=== PATIENT | female | born 1940 | race Caucasian/White ===

== ENCOUNTER 2022-07-26 13:23 | Emergency (ER) | payer MEDICARE ==
[2022-07-26 14:06] VITALS: BP 167/75; PULSE 86
[2022-07-26] MEDS ORDERED: traMADol 50 MG Tab PO ONE (14:10)
== END 2022-07-26 14:24 | disposition home or self-care (01) ==
LOC: KA.ED 13:23
DX: M79.605 Pain in left leg (principal); M79.604 Pain in right leg; M79.672 Pain in left foot; M79.671 Pain in right foot
CPT/HCPCS: 99283; A9270-GY

== ENCOUNTER 2023-07-18 22:40 | Emergency (ER) | payer MEDICARE ==
[2023-07-18 23:53] LABS: BASOPHILS ABSOLUTE AUTO 0.02 10^3/uL (0.00-0.10); BASOPHILS PERCENT AUTO 0.1 % (0.0-1.0); EOSINOPHILS ABSOLUTE AUTO 0.08 10^3/uL (0.10-0.30); EOSINOPHILS PERCENT AUTO 0.4 % (1.0-3.0); HEMATOCRIT 44.4 % (37.0-47.0); HEMOGLOBIN 14.6 g/dL (12.0-16.0); IMMATURE GRAN ABSOLUTE AUTO 0.11 10^3/uL (0.00-0.50); IMMATURE GRAN PERCENT AUTO 0.6 % (0.0-5.0); LYMPHOCYTES PERCENT AUTO 8.9 % (20.0-40.0); MEAN CORPUSCULAR HEMOGLOBIN 29.7 pg (27.0-31.0); MEAN CORPUSCULAR HGB CONC 32.9 g/dL (32.0-36.0); MEAN CORPUSCULAR VOLUME 90.4 fL (82.0-92.0); MEAN PLATELET VOLUME 9.1 fL (7.4-10.4); MONOCYTES ABSOLUTE AUTO 0.59 10^3/uL (0.10-0.80); MONOCYTES PERCENT AUTO 3.3 % (2.0-8.0); NEUTROPHILS ABSOLUTE AUTO 15.61 10^3/uL (2.50-7.00); NEUTROPHILS PERCENT AUTO 86.7 % (50.0-70.0); PLATELET COUNT,PLT 239 10^3/uL (150-400); RED BLOOD CELL COUNT 4.91 10^6/uL (3.80-5.50); RED CELL DISTRIBUTION WIDTH 13.3 % (11.5-14.5); WHITE BLOOD CELL COUNT,WBC 18.01 10^3/uL (5.00-10.00)
[2023-07-19 00:04] LABS: ANION GAP 15.7 mmol/L (5-15); CALCIUM 9.2 mg/dL (8.7-10.3); CARBON DIOXIDE,CO2 29.2 mmol/L (21.0-32.0); CREATININE 0.52 mg/dL (0.51-1.17); EST CRCL DRUG DOSING (CG) 63.69 mL/min; POTASSIUM,K 3.9 mmol/L (3.5-5.1)
[2023-07-19 00:06] LABS: INR 2.8 (0.9-1.1); PROTHROMBIN TIME 28.2 SEC (9.3-12.2)
[2023-07-19 00:10] LABS: BILIRUBIN,URINE NEGATIVE (NEGATIVE); COLOR,URINE LIGHT YELLOW (YELLOW); GLUCOSE,URINE NEGATIVE (NEGATIVE); KETONES,URINE TRACE mg/dL (NEGATIVE); LEUKOCYTE ESTERASE,URINE MODERATE (NEGATIVE); NITRITE,URINE NEGATIVE (NEGATIVE); OCCULT BLOOD,URINE MODERATE (NEGATIVE); PROTEIN,URINE >=300 mg/dL (NEGATIVE); UROBILINOGEN,URINE 0.2 E.U./dL (0.2-1.0)
[2023-07-19 00:16] LABS: APPEARANCE,URINE TURBID (CLEAR)
[2023-07-19] MEDS: traMADol 50 MG Tab PO ONE (00:20)
[2023-07-19] MEDS: Acetaminophen 500 MG Tab PO ONE (00:20)
[2023-07-19 00:23] LABS: WBC,URINE 50-75 /HPF (0-5)
[2023-07-19 00:24] LABS: BACTERIA,URINE FEW /HPF (NONE TO FEW); EPITHELIAL CELLS,URINE RARE /LPF
[2023-07-19] MEDS: Cephalexin 250 MG Cap PO ONE ×2 (00:49→01:44)
[2023-07-19] MEDS: Melatonin 3 MG Tab PO SCH (01:08)
[2023-07-19] MEDS: Cephalexin 250 MG Cap PO SCH ×2 (01:45→08:28)
[2023-07-19] MEDS: Pregabalin 25 MG Cap PO SCH (02:11)
[2023-07-19] MEDS: Acetaminophen 500 MG Tab PO PRN (05:02)
[2023-07-19] MEDS: Levothyroxine 25 MCG Tab PO SCH (07:43)
[2023-07-19 07:46] VITALS: BP 130/75; PULSE 77
[2023-07-19] MEDS: traMADol 50 MG Tab PO PRN (08:30)
== END 2023-07-19 09:10 | disposition home or self-care (01) ==
LOC: KA.ED 22:40
DX: S70.11XA Contusion of right thigh, initial encounter (principal); N39.0 Urinary tract infection, site not specified; Z79.01 Long term (current) use of anticoagulants; Z79.899 Other long term (current) drug therapy; W01.198A Fall on same level from slipping, tripping and stumbling with subsequent striking against other object, initial encounter; Y93.01 Activity, walking, marching and hiking
CPT/HCPCS: 36415; 72170; 80048; 81001; 85025; 85610; 87086; 87088; 99284; A9270-GY

== ENCOUNTER 2023-07-21 07:07 | Emergency (ER) | payer MEDICARE ==
[2023-07-21] MEDS ORDERED: Naloxone 0.4 MG/ML SDV IVPUSH PRN (07:36)
[2023-07-21] MEDS: HYDROmorphone 1 MG/ML Syringe IM ONE (07:48)
[2023-07-21 09:14] VITALS: PULSE 79
[2023-07-21 09:59] LABS: INR 1.8 (0.9-1.1)
[2023-07-21] MEDS: ALPRAZolam 0.25 MG Tab PO ONE (12:09)
[2023-07-21] MEDS: Cephalexin 250 MG Cap PO ONE (12:10)
[2023-07-21 12:52] VITALS: BP 131/62
== END 2023-07-21 13:00 | disposition swing bed (61) ==
LOC: KA.ED 07:07
DX: M54.50 Low back pain, unspecified (principal); M85.89 Other specified disorders of bone density and structure, multiple sites; N30.00 Acute cystitis without hematuria; I10 Essential (primary) hypertension; E78.00 Pure hypercholesterolemia, unspecified; Z79.01 Long term (current) use of anticoagulants; Z79.899 Other long term (current) drug therapy; Z90.49 Acquired absence of other specified parts of digestive tract; Z90.710 Acquired absence of both cervix and uterus; W19.XXXA Unspecified fall, initial encounter; Y92.009 Unspecified place in unspecified non-institutional (private) residence as the place of occurrence of the external cause
CPT/HCPCS: 36416; 72070; 72100; 85610; 96372; 99284; A9270-GY; J1170

== ENCOUNTER 2023-07-21 12:42 | Inpatient (IN) | payer MEDICARE ==
[2023-07-21 13:45] VITALS: BP 141/74; PULSE 83
[2023-07-21] MEDS: Ketorolac 30 MG/ML SDV IVPUSH ONE (14:13)
== END 2023-07-21 14:09 | disposition critical access hospital (66) | DRG 690 ==
LOC: KA.MS 12:42
PROVIDERS: ADMIT Internal Medicine; ATTEND Internal Medicine
DX: N39.0 Urinary tract infection, site not specified (principal); I48.0 Paroxysmal atrial fibrillation; I10 Essential (primary) hypertension; R29.6 Repeated falls; E78.00 Pure hypercholesterolemia, unspecified; M19.90 Unspecified osteoarthritis, unspecified site; M54.9 Dorsalgia, unspecified; G89.29 Other chronic pain; M81.0 Age-related osteoporosis without current pathological fracture; F41.9 Anxiety disorder, unspecified; F32.A Depression, unspecified; G47.00 Insomnia, unspecified; E03.9 Hypothyroidism, unspecified; Z96.649 Presence of unspecified artificial hip joint; R53.81 Other malaise; Z79.899 Other long term (current) drug therapy; Z79.01 Long term (current) use of anticoagulants; Z87.81 Personal history of (healed) traumatic fracture; Z85.3 Personal history of malignant neoplasm of breast; Z90.49 Acquired absence of other specified parts of digestive tract; Z90.710 Acquired absence of both cervix and uterus
CPT/HCPCS: J1885

== ENCOUNTER 2023-07-21 14:10 | Inpatient (IN) | payer MEDICARE ==
[2023-07-21] MEDS ORDERED: Polyethylene Glycol 3350 Powder 17 GM Packet PO PRN (15:39)
[2023-07-21] MEDS ORDERED: Morphine 2 MG/ML SYRINGE IVPUSH PRN (15:39)
[2023-07-21] MEDS ORDERED: Ondansetron 4 MG/2 ML SDV IV PRN (15:39)
[2023-07-21] MEDS: Acetaminophen/oxyCODONE 325-5 MG Tab PO PRN (16:02)
[2023-07-21] MEDS: Sodium Chloride 0.9% 1,000 ML IV SCH (16:02)
[2023-07-21] MEDS: Piperacillin/Tazobactam 4.5 GM in Sodium Chloride 0.9% 100 ML IV SCH ×2 (16:39→20:58)
[2023-07-21] MEDS: Piperacillin/Tazobactam 4.5 GM in Sodium Chloride 0.9% 100 ML IV ONE (16:51)
[2023-07-21] MEDS: Carvedilol 12.5 MG Tab PO SCH (18:19)
[2023-07-21] MEDS: Warfarin 2.5 MG Tab PO ONE (18:19)
[2023-07-21] MEDS: ALPRAZolam 0.25 MG Tab PO PRN (19:00)
[2023-07-21] MEDS: Pregabalin 25 MG Cap PO SCH (20:58)
[2023-07-21] MEDS: rOPINIRole 0.25 MG Tab PO SCH (20:58)
[2023-07-21] MEDS: Famotidine 20 MG Tab PO SCH (20:58)
[2023-07-21] MEDS: traMADol 50 MG Tab PO SCH (20:59)
[2023-07-21] MEDS ORDERED: Diclofenac Sodium 1% Gel 100 GM Tube TOP SCH (21:00)
[2023-07-21] MEDS: Acetaminophen 500 MG Tab PO SCH (21:01)
[2023-07-22] MEDS: Levothyroxine 25 MCG Tab PO SCH (06:33)
[2023-07-22 07:24] LABS: HEMATOCRIT 39.6 % (37.0-47.0); HEMOGLOBIN 13.7 g/dL (12.0-16.0); MEAN CORPUSCULAR HEMOGLOBIN 29.4 pg (27.0-31.0); MEAN CORPUSCULAR HGB CONC 34.6 g/dL (32.0-36.0); MEAN PLATELET VOLUME 8.8 fL (7.4-10.4); PLATELET COUNT,PLT 191 10^3/uL (150-400); RED BLOOD CELL COUNT 4.66 10^6/uL (3.80-5.50); RED CELL DISTRIBUTION WIDTH 12.8 % (11.5-14.5)
[2023-07-22 07:32] LABS: ALBUMIN 2.87 g/dL (3.40-5.00); ANION GAP 15.2 mmol/L (5-15); BILIRUBIN TOTAL 0.8 mg/dL (0.2-1.0); CALCIUM 8.2 mg/dL (8.7-10.3); CARBON DIOXIDE,CO2 26.3 mmol/L (21.0-32.0); CREATININE 0.45 mg/dL (0.51-1.17); EST CRCL DRUG DOSING (CG) 73.6 mL/min; POTASSIUM,K 3.5 mmol/L (3.5-5.1); PROTEIN TOTAL,TP 6.6 g/dL (6.4-8.2)
[2023-07-22] MEDS ORDERED: Non-Formulary Medication 1 Each (Duloxetine [Cymbalta] 60 MG Cap) PO SCH (09:00)
[2023-07-22] MEDS: amLODIPine 5 MG Tab PO SCH (09:01)
[2023-07-22] MEDS: DULoxetine 30 MG Cap PO SCH (09:01)
[2023-07-22] MEDS: Amiodarone 200 MG Tab PO SCH (09:02)
[2023-07-22] MEDS: Simvastatin 20 MG Tab PO SCH (09:02)
[2023-07-22] MEDS: Losartan 50 MG Tab PO SCH (09:02)
[2023-07-22] MEDS: Potassium Chloride 20 MEQ Tab.ER PO SCH (09:02)
[2023-07-22] MEDS: Lidocaine 5% 700 MG Patch TOP SCH (09:03)
[2023-07-22] MEDS: Sodium Chloride 0.9% 1,000 ML IV SCH (12:01)
[2023-07-22 15:40] LABS: CALCIUM 8.1 mg/dL (8.7-10.3); CARBON DIOXIDE,CO2 28.4 mmol/L (21.0-32.0); CREATININE 0.52 mg/dL (0.51-1.17); EST CRCL DRUG DOSING (CG) 63.69 mL/min; POTASSIUM,K 3.4 mmol/L (3.5-5.1)
[2023-07-22] MEDS: Digoxin 125 MCG Tab PO SCH (17:59)
[2023-07-22] MEDS: Warfarin 2.5 MG Tab PO ONE (17:59)
[2023-07-22 19:00] LABS: ANION GAP 14.2 mmol/L (5-15); CREATININE 0.45 mg/dL (0.51-1.17); EST CRCL DRUG DOSING (CG) 73.6 mL/min; POTASSIUM,K 3.2 mmol/L (3.5-5.1)
[2023-07-22] MEDS: cefTRIAXone 1 GM Vial IVPUSH SCH (19:09)
[2023-07-22] MEDS: traMADol 50 MG Tab PO SCH (20:21)
[2023-07-22] MEDS: Melatonin 3 MG Tab PO PRN (22:38)
[2023-07-23 08:47] LABS: HEMATOCRIT 36.8 % (37.0-47.0); HEMOGLOBIN 12.7 g/dL (12.0-16.0); MEAN CORPUSCULAR HGB CONC 34.5 g/dL (32.0-36.0); MEAN PLATELET VOLUME 8.7 fL (7.4-10.4); PLATELET COUNT,PLT 218 10^3/uL (150-400); RED BLOOD CELL COUNT 4.23 10^6/uL (3.80-5.50); RED CELL DISTRIBUTION WIDTH 13.1 % (11.5-14.5); WHITE BLOOD CELL COUNT,WBC 9.07 10^3/uL (5.00-10.00)
[2023-07-23 09:06] LABS: INR 2.8 (0.9-1.1); PROTHROMBIN TIME 28.5 SEC (9.3-12.2)
[2023-07-23 09:11] LABS: ALBUMIN 2.86 g/dL (3.40-5.00); ANION GAP 14.9 mmol/L (5-15); BILIRUBIN TOTAL 0.4 mg/dL (0.2-1.0); CALCIUM 8.2 mg/dL (8.7-10.3); CARBON DIOXIDE,CO2 26.3 mmol/L (21.0-32.0); CREATININE 0.48 mg/dL (0.51-1.17); POTASSIUM,K 3.2 mmol/L (3.5-5.1); PROTEIN TOTAL,TP 6.4 g/dL (6.4-8.2)
[2023-07-23 14:08] LABS: ANION GAP 11.7 mmol/L (5-15); CARBON DIOXIDE,CO2 27.7 mmol/L (21.0-32.0); CREATININE 0.5 mg/dL (0.51-1.17); EST CRCL DRUG DOSING (CG) 66.24 mL/min; MAGNESIUM 1.7 mg/dL (1.8-2.4); POTASSIUM,K 3.4 mmol/L (3.5-5.1)
[2023-07-23] MEDS: Sennosides/Docusate Sodium 50-8.6 MG Tab PO PRN (14:23)
[2023-07-23] MEDS: Ampicillin/Sulbactam Na 3 GM in Sodium Chloride 0.9% 100 ML IV SCH (16:21)
[2023-07-23] MEDS ORDERED: Ampicillin 1 GM in Sodium Chloride 0.9% 50 ML IV SCH (17:00)
[2023-07-24 07:00] LABS: INR 2.8 (0.9-1.1)
[2023-07-24 08:25] LABS: ANION GAP 13.3 mmol/L (5-15); CALCIUM 8.4 mg/dL (8.7-10.3); CREATININE 0.48 mg/dL (0.51-1.17); MAGNESIUM 1.7 mg/dL (1.8-2.4); POTASSIUM,K 3.3 mmol/L (3.5-5.1)
[2023-07-24] MEDS: Polyethylene Glycol 3350 Powder 17 GM Packet PO SCH (10:50)
[2023-07-24] MEDS: Docusate Sodium 100 MG Cap PO SCH (10:50)
[2023-07-24] MEDS: Potassium Chloride 10 MEQ Tab.ER PO ONE (13:11)
[2023-07-24] MEDS: Magnesium Oxide 500 MG Tab PO SCH (13:11)
[2023-07-25 07:17] LABS: INR 2.6 (0.9-1.1)
[2023-07-25 08:01] LABS: ANION GAP 13.5 mmol/L (5-15); CALCIUM 8.6 mg/dL (8.7-10.3); CARBON DIOXIDE,CO2 28.4 mmol/L (21.0-32.0); CREATININE 0.52 mg/dL (0.51-1.17); EST CRCL DRUG DOSING (CG) 63.69 mL/min; POTASSIUM,K 3.9 mmol/L (3.5-5.1)
[2023-07-25] MEDS ORDERED: hydrALAZINE 10 MG Tab PO PRN (10:55)
[2023-07-25] MEDS: Ketorolac 30 MG/ML SDV IVPUSH ONE (11:55)
[2023-07-25] MEDS: Sodium Chloride 0.9% 100 ML IV SCH (22:02)
[2023-07-26 08:26] LABS: INR 2.5 (0.9-1.1)
[2023-07-26] MEDS: Sodium Chloride 0.9% 10 ML Syringe FLUSH PRN (22:00)
[2023-07-27 07:32] LABS: INR 2.1 (0.9-1.1)
[2023-07-27 12:36] VITALS: BP 144/62; PULSE 69
[2023-07-27] MEDS ORDERED: Warfarin 2 MG Tab PO ONE (18:00)
== END 2023-07-27 12:33 | DRG 690 ==
LOC: KA.MS 14:10
PROVIDERS: ADMIT Internal Medicine; ATTEND Internal Medicine
DX: N39.0 Urinary tract infection, site not specified (principal); E87.1 Hypo-osmolality and hyponatremia; Z66 Do not resuscitate; I48.0 Paroxysmal atrial fibrillation; S22.080D Wedge compression fracture of T11-T12 vertebra, subsequent encounter for fracture with routine healing; I10 Essential (primary) hypertension; R35.0 Frequency of micturition; E78.00 Pure hypercholesterolemia, unspecified; H54.7 Unspecified visual loss; M19.90 Unspecified osteoarthritis, unspecified site; G89.29 Other chronic pain; G47.00 Insomnia, unspecified; F41.9 Anxiety disorder, unspecified; F32.A Depression, unspecified; E03.9 Hypothyroidism, unspecified; Z96.649 Presence of unspecified artificial hip joint; M54.40 Lumbago with sciatica, unspecified side; R31.9 Hematuria, unspecified; K59.00 Constipation, unspecified; B96.20 Unspecified Escherichia coli [E. coli] as the cause of diseases classified elsewhere; Z79.899 Other long term (current) drug therapy; Z91.81 History of falling; Z79.01 Long term (current) use of anticoagulants; Z87.81 Personal history of (healed) traumatic fracture; Z85.3 Personal history of malignant neoplasm of breast; Z90.49 Acquired absence of other specified parts of digestive tract; Z90.710 Acquired absence of both cervix and uterus; W19.XXXD Unspecified fall, subsequent encounter
CPT/HCPCS: 36415; 36416; 80048; 80053; 83735; 85027; 85610; 99223-GT; 99232-GT; 99233-GT; 99239-GT; A9270-GY; J0295; J0696; J1885; J2543; J3490; J7030; Q3014

== ENCOUNTER 2023-09-13 15:50 | Emergency (ER) | payer MEDICARE ==
[2023-09-13 16:28] LABS: BASOPHILS ABSOLUTE AUTO 0.03 10^3/uL (0.00-0.10); BASOPHILS PERCENT AUTO 0.3 % (0.0-1.0); EOSINOPHILS PERCENT AUTO 3.2 % (1.0-3.0); HEMATOCRIT 42.9 % (37.0-47.0); HEMOGLOBIN 13.8 g/dL (12.0-16.0); IMMATURE GRAN ABSOLUTE AUTO 0.04 10^3/uL (0.00-0.50); IMMATURE GRAN PERCENT AUTO 0.4 % (0.0-5.0); LYMPHOCYTES ABSOLUTE AUTO 2.47 10^3/uL (1.00-4.00); LYMPHOCYTES PERCENT AUTO 26.4 % (20.0-40.0); MEAN CORPUSCULAR HEMOGLOBIN 29.4 pg (27.0-31.0); MEAN CORPUSCULAR HGB CONC 32.2 g/dL (32.0-36.0); MEAN CORPUSCULAR VOLUME 91.3 fL (82.0-92.0); MEAN PLATELET VOLUME 9.7 fL (7.4-10.4); MONOCYTES ABSOLUTE AUTO 0.77 10^3/uL (0.10-0.80); MONOCYTES PERCENT AUTO 8.2 % (2.0-8.0); NEUTROPHILS ABSOLUTE AUTO 5.74 10^3/uL (2.50-7.00); NEUTROPHILS PERCENT AUTO 61.5 % (50.0-70.0); PLATELET COUNT,PLT 222 10^3/uL (150-400); RED CELL DISTRIBUTION WIDTH 13.7 % (11.5-14.5); WHITE BLOOD CELL COUNT,WBC 9.35 10^3/uL (5.00-10.00)
[2023-09-13 17:28] VITALS: BP 150/67; PULSE 71
== END 2023-09-13 17:25 ==
LOC: KA.ED 15:50
DX: S09.90XA Unspecified injury of head, initial encounter (principal); I48.91 Unspecified atrial fibrillation; E78.00 Pure hypercholesterolemia, unspecified; I10 Essential (primary) hypertension; E03.9 Hypothyroidism, unspecified; Z79.899 Other long term (current) drug therapy; Z79.01 Long term (current) use of anticoagulants; Z90.49 Acquired absence of other specified parts of digestive tract; W19.XXXA Unspecified fall, initial encounter
CPT/HCPCS: 36415; 70450; 85025; 85610; 99284

== ENCOUNTER 2024-09-09 11:17 | Emergency (ER) | payer MEDICARE ==
[2024-09-09 11:49] LABS: BASOPHILS ABSOLUTE AUTO 0.02 10^3/uL (0.00-0.10); BASOPHILS PERCENT AUTO 0.4 % (0.0-1.0); EOSINOPHILS PERCENT AUTO 3.5 % (1.0-3.0); HEMATOCRIT 43.4 % (37.0-47.0); HEMOGLOBIN 13.4 g/dL (12.0-16.0); IMMATURE GRAN ABSOLUTE AUTO 0.01 10^3/uL (0.00-0.04); IMMATURE GRAN PERCENT AUTO 0.2 % (0.0-0.4); LYMPHOCYTES ABSOLUTE AUTO 1.86 10^3/uL (1.00-4.00); MEAN CORPUSCULAR HEMOGLOBIN 28.8 pg (27.0-31.0); MEAN CORPUSCULAR HGB CONC 30.9 g/dL (32.0-36.0); MEAN CORPUSCULAR VOLUME 93.1 fL (82.0-92.0); MEAN PLATELET VOLUME 10.5 fL (7.4-10.4); MONOCYTES ABSOLUTE AUTO 0.59 10^3/uL (0.10-0.80); MONOCYTES PERCENT AUTO 10.5 % (2.0-8.0); NEUTROPHILS ABSOLUTE AUTO 2.96 10^3/uL (2.50-7.00); NEUTROPHILS PERCENT AUTO 52.4 % (50.0-70.0); PLATELET COUNT,PLT 157 10^3/uL (150-400); RED BLOOD CELL COUNT 4.66 10^6/uL (3.80-5.50); WHITE BLOOD CELL COUNT,WBC 5.64 10^3/uL (5.00-10.00)
[2024-09-09 12:04] LABS: B-TYPE NATRIURETIC PEPTIDE,BNP 72 pg/mL (0-100)
[2024-09-09 12:08] LABS: ALANINE AMINOTRANSFERASE,ALT 17 U/L (14-63); ALBUMIN 2.76 g/dL (3.40-5.00); ALKALINE PHOSPHATASE 46 U/L (46-116); ANION GAP 4.8 mmol/L (5-15); ASPARTATE AMNIOTRANSFERASE,AST 19 U/L (15-37); BILIRUBIN TOTAL 0.3 mg/dL (0.2-1.0); BLOOD UREA NITROGEN,BUN 32 mg/dL (7-18); CALCIUM 8.8 mg/dL (8.7-10.3); CARBON DIOXIDE,CO2 37.4 mmol/L (21.0-32.0); CHLORIDE,CL 106 mmol/L (98-107); CREATININE 0.84 mg/dL (0.51-1.17); GLUCOSE RANDOM 109 mg/dL (70-140); POTASSIUM,K 4.2 mmol/L (3.5-5.1); PROTEIN TOTAL,TP 6.4 g/dL (6.4-8.2); SODIUM,NA 144 mmol/L (136-145)
[2024-09-09 12:11] LABS: C-REACTIVE PROTEIN < 0.50 mg/dL (0.00-0.50); ESTIMATED GFR 68 mL/min (>=60)
[2024-09-09 12:24] LABS: INR 4.2 (0.9-1.1)
[2024-09-09 12:33] LABS: D-DIMER QUANTITATIVE < 100 ng/mL (<400)
[2024-09-09 17:26] VITALS: BP 151/65
[2024-09-09 17:30] VITALS: PULSE 64
== END 2024-09-09 13:50 ==
LOC: KA.ED 11:17
DX: R79.1 Abnormal coagulation profile (principal); R79.89 Other specified abnormal findings of blood chemistry; I10 Essential (primary) hypertension; E78.00 Pure hypercholesterolemia, unspecified; E03.9 Hypothyroidism, unspecified; Z79.01 Long term (current) use of anticoagulants; Z79.890 Hormone replacement therapy; Z79.899 Other long term (current) drug therapy; Z90.49 Acquired absence of other specified parts of digestive tract; Z90.710 Acquired absence of both cervix and uterus
CPT/HCPCS: 80053; 83880; 84484; 85025; 85379; 85610; 86140; 93005; 99285

== ENCOUNTER 2024-12-18 16:06 | Observation (INO) | payer MEDICARE ==
[2024-12-18] MEDS ORDERED: Sodium Chloride 0.9% 10 ML Syringe FLUSH PRN (16:14)
[2024-12-18 17:17] LABS: BASOPHILS ABSOLUTE AUTO 0.04 10^3/uL (0.00-0.10); BASOPHILS PERCENT AUTO 0.5 % (0.0-1.0); EOSINOPHILS ABSOLUTE AUTO 0.24 10^3/uL (0.10-0.30); EOSINOPHILS PERCENT AUTO 3.2 % (1.0-3.0); IMMATURE GRAN ABSOLUTE AUTO 0.01 10^3/uL (0.00-0.04); IMMATURE GRAN PERCENT AUTO 0.1 % (0.0-0.4); LYMPHOCYTES ABSOLUTE AUTO 1.91 10^3/uL (1.00-4.00); LYMPHOCYTES PERCENT AUTO 25.8 % (20.0-40.0); MEAN PLATELET VOLUME 11.2 fL (7.4-10.4); MONOCYTES ABSOLUTE AUTO 0.74 10^3/uL (0.10-0.80); MONOCYTES PERCENT AUTO 10.0 % (2.0-8.0); NEUTROPHILS ABSOLUTE AUTO 4.45 10^3/uL (2.50-7.00); NEUTROPHILS PERCENT AUTO 60.4 % (50.0-70.0); PLATELET COUNT,PLT 162 10^3/uL (150-400); RED BLOOD CELL COUNT 4.20 10^6/uL (3.80-5.50); RED CELL DISTRIBUTION WIDTH 15.1 % (11.5-14.5); WHITE BLOOD CELL COUNT,WBC 7.39 10^3/uL (5.00-10.00)
[2024-12-18 17:33] LABS: APPEARANCE,URINE CLOUDY (CLEAR); GLUCOSE,URINE NEGATIVE (NEGATIVE); OCCULT BLOOD,URINE LARGE (NEGATIVE)
[2024-12-18 17:34] LABS: ALANINE AMINOTRANSFERASE,ALT 16.0 U/L (14-63); ASPARTATE AMNIOTRANSFERASE,AST 14.0 U/L (15-37); BILIRUBIN TOTAL 0.3 mg/dL (0.2-1.0); BLOOD UREA NITROGEN,BUN 35.0 mg/dL (7-18); CARBON DIOXIDE,CO2 39.0 mmol/L (21.0-32.0); CHLORIDE,CL 102.0 mmol/L (98-107); CREATINE KINASE,CK 19.0 U/L (26-276); CREATININE 0.92 mg/dL (0.51-1.17); EST CRCL DRUG DOSING (CG) 35.36 mL/min; GLUCOSE RANDOM 110.0 mg/dL (70-140); INR 3.9 (0.9-1.1); POTASSIUM,K 4.2 mmol/L (3.5-5.1); PROTEIN TOTAL,TP 6.8 g/dL (6.4-8.2); SODIUM,NA 143.0 mmol/L (136-145)
[2024-12-18 17:35] LABS: ESTIMATED GFR 61.0 mL/min (>=60)
[2024-12-18 17:36] LABS: B-TYPE NATRIURETIC PEPTIDE,BNP 78.0 pg/mL (0-100)
[2024-12-18 17:39] LABS: EPITHELIAL CELLS,URINE RARE /LPF
[2024-12-18] MEDS ORDERED: Magnesium Hydroxide 400 MG/5 ML Susp 30 ML Cup PO PRN (23:08)
[2024-12-19 07:29] LABS: BASOPHILS ABSOLUTE AUTO 0.02 10^3/uL (0.00-0.10); BASOPHILS PERCENT AUTO 0.3 % (0.0-1.0); EOSINOPHILS ABSOLUTE AUTO 0.09 10^3/uL (0.10-0.30); EOSINOPHILS PERCENT AUTO 1.3 % (1.0-3.0); IMMATURE GRAN ABSOLUTE AUTO 0.01 10^3/uL (0.00-0.04); IMMATURE GRAN PERCENT AUTO 0.1 % (0.0-0.4); LYMPHOCYTES ABSOLUTE AUTO 1.38 10^3/uL (1.00-4.00); LYMPHOCYTES PERCENT AUTO 19.9 % (20.0-40.0); MEAN PLATELET VOLUME 10.8 fL (7.4-10.4); MONOCYTES ABSOLUTE AUTO 0.70 10^3/uL (0.10-0.80); MONOCYTES PERCENT AUTO 10.1 % (2.0-8.0); NEUTROPHILS ABSOLUTE AUTO 4.74 10^3/uL (2.50-7.00); NEUTROPHILS PERCENT AUTO 68.3 % (50.0-70.0); PLATELET COUNT,PLT 161 10^3/uL (150-400); RED BLOOD CELL COUNT 4.17 10^6/uL (3.80-5.50); RED CELL DISTRIBUTION WIDTH 14.6 % (11.5-14.5); WHITE BLOOD CELL COUNT,WBC 6.94 10^3/uL (5.00-10.00)
[2024-12-19 07:53] LABS: BLOOD UREA NITROGEN,BUN 29.0 mg/dL (7-18); CARBON DIOXIDE,CO2 41.1 mmol/L (21.0-32.0); CHLORIDE,CL 101.0 mmol/L (98-107); CREATININE 0.74 mg/dL (0.51-1.17); EST CRCL DRUG DOSING (CG) 43.96 mL/min; GLUCOSE RANDOM 112.0 mg/dL (70-140); POTASSIUM,K 3.6 mmol/L (3.5-5.1); SODIUM,NA 143.0 mmol/L (136-145)
[2024-12-19 07:59] LABS: ESTIMATED GFR 79.0 mL/min (>=60)
[2024-12-19 08:03] LABS: INR 4.5 (0.9-1.1)
[2024-12-19] MEDS ORDERED: [UNRECOGNIZED DRUG - OTHER] EYEBOTH SCH (09:00)
[2024-12-19] MEDS: Potassium Chloride 20 MEQ Tab.ER PO SCH (09:17)
[2024-12-19] MEDS: Calcium Citrate/Vitamin D3 315 MG-250 Unit Tab PO SCH (09:30)
[2024-12-19] MEDS: Lutein/Minerals/Vitamins A, C & E Tab PO SCH (09:30)
[2024-12-19] MEDS: Cyanocobalamin (Vitamin B12) 500 MCG Tab PO SCH (09:30)
[2024-12-19] MEDS: Cholecalciferol (Vitamin D3) 25 MCG Tab PO SCH (09:31)
[2024-12-19 11:11] VITALS: BP 113/48; PULSE 64
== END 2024-12-19 11:05 ==
LOC: KA.ED 16:06 → KA.MS 18:23
PROVIDERS: ADMIT Family Medicine; ATTEND Family Medicine
DX: R58 Hemorrhage, not elsewhere classified (principal); S22.39XA Fracture of one rib, unspecified side, initial encounter for closed fracture; N30.01 Acute cystitis with hematuria; I10 Essential (primary) hypertension; I48.0 Paroxysmal atrial fibrillation; K21.9 Gastro-esophageal reflux disease without esophagitis; F41.9 Anxiety disorder, unspecified; F32.A Depression, unspecified; E03.9 Hypothyroidism, unspecified; Z79.01 Long term (current) use of anticoagulants; Z79.899 Other long term (current) drug therapy; W19.XXXA Unspecified fall, initial encounter
CPT/HCPCS: 36415; 70450; 70486; 71046; 80048; 80053; 81001; 82550; 83880; 84484; 85025; 85610; 87086; 96374; 99223; 99238; 99285; A9270; G0378; J0696; J1630; Q3014; 93010; 99284